=== PATIENT | female | born 1965 | race Caucasian/White ===

== ENCOUNTER → 2016-12-28 | Day surgery (SDC) | payer OTHER ==
[~2016-12-28] MED LIST: NEXIUM PO; NO MEDICATIONS
--- NOTE | ~2016-12-28 | OR ---
Unit #: [id number] #: [id number] Patient: PRINCESS PELLETIER [id number] [address] [place], [place] [address] [id number] O MR#: [id number] NAME: PRINCESS PELLETIER ROOM: Date of Procedure: 12/28/2016 Admission Date: 12/28/2016 Surgeon: Teddy Nettles III, M.D. : 1965 Attending Physician: Teddy Nettles III, M.D. Primary Care Physician: Martir Espinoza M.D. OPERATIVE REPORT PREOPERATIVE DIAGNOSES Epigastric pain and constipation. POSTOPERATIVE DIAGNOSIS Normal upper and lower endoscopy. PROCEDURES PERFORMED Esophagogastroduodenoscopy with biopsy and colonoscopy to cecum. ANESTHESIA MAC. SPECIMENS Antrum was sent for SUN testing. COMPLICATIONS None apparent. INDICATIONS FOR PROCEDURE This is a 51-year-old lady, who has had some worsening epigastric pain and constipation. She is here today for upper and lower endoscopy. DESCRIPTION OF PROCEDURE After consent was obtained, the patient was brought to the endoscopy suite and placed in the left lateral decubitus position. We titrated the above sedation and I passed an EGD scope easily into the esophagus under direct visualization. She had normal peristalsis. No evidence of any erosions or esophagitis and her band was in good position. I advanced the scope through the opening of the pouch. The rest of the stomach, pylorus, and first and second portions of the duodenum appeared normal. I then took a biopsy of the antrum for SUN testing. I retroflexed the scope within the cardia and again did not see any evidence of an erosion of her band. The scope was then straightened and carefully withdrawn. I then performed a rectal exam and did not feel any masses. The scope was placed within the rectal vault. Air was insufflated. I navigated the scope all the way to the cecum without any difficulty. Her mucosa was normal. There were no polyps or masses. I saw one diverticula that was in the mid transverse colon. I did retroflex the scope within the rectum and did not see any other masses. The scope was straightened and carefully withdrawn. The patient tolerated the procedure without any problems and returned to the recovery room in stable condition. Unit #: [id number] #: [id number] Patient: PRINCESS PELLETIER Dictated by... Teddy Nettles III, M.D. VCL/grace TD: 12/28/2016 22:40 JOB #: [id number] OPERATIVE REPORT Page 1 of 1 X Teddy Nettles III, MD PROCEDURE OPERATIVE NOTE
== END | disposition home or self-care (01) ==
LOC: COPS 10:21
PROVIDERS: Surgery
PROC: 0DB78ZX Excision of Stomach, Pylorus, Via Natural or Artificial Opening Endoscopic, Diagnostic (ICD-10-PCS; principal; 2016-12-28 13:30)
PROC: 0DJD8ZZ Inspection of Lower Intestinal Tract, Via Natural or Artificial Opening Endoscopic (ICD-10-PCS; 2016-12-28 13:30)
DX: R10.13 Epigastric pain (principal); K57.30 Diverticulosis of large intestine without perforation or abscess without bleeding; K59.00 Constipation, unspecified; G47.30 Sleep apnea, unspecified; F17.200 Nicotine dependence, unspecified, uncomplicated; N32.9 Bladder disorder, unspecified; Z98.84 Bariatric surgery status; Z90.710 Acquired absence of both cervix and uterus; Z91.040 Latex allergy status; Z88.5 Allergy status to narcotic agent; Z88.8 Allergy status to other drugs, medicaments and biological substances; Z98.51 Tubal ligation status
CPT/HCPCS: 87077